=== PATIENT | female | born 1990 | race Caucasian/White ===

== ENCOUNTER 2018-04-21 12:23 | Emergency (ER) | payer BC, OTHER ==
[2018-04-21 12:43] VITALS: BP 109/63; PULSE 93; TEMP 100; BMI 26.5
[2018-04-21] MEDS ORDERED: DEXAMETHASONE LIQUID 0.5 MG/5 ML 240 ML BULK BOTTLE PO ONE (14:19)
[2018-04-21] MEDS ORDERED: KETOROLAC TROMETHAMINE 30 MG/1 ML VIAL IM ONE (14:19)
[2018-04-21] MEDS ORDERED: DEXAMETHASONE SOD PHOSPHATE 10 MG/1 ML VIAL ONE (14:27)
[2018-04-21] MEDS ORDERED: KETOROLAC TROMETHAMINE 30 MG/1 ML VIAL ONE (14:28)
--- NOTE | 2018-04-21 14:28 | PDOC ---
History of Present Illness - General Chief Complaint: Cold Symptoms Stated Complaint: COLD SYMPTOMS Time Seen by Provider: 04/21/18 13:59 History Source: Patient Exam Limitations: Clinical Condition - History of Present Illness Initial Comments: 04/21/18 14:22 Patient with no significant past medical history present with complaint of three -day history of sore throat, fever and swelling of bilateral neck glands. Patient was seen in urgent care today for symptoms and reported rapid strep was negative and patient discharged home on clindamycin and instructed to come to with radiologist Center for next CT or ER for next CT to rule out peritonsillar abscess. Patient denies swelling sensation in her throat or difficulty swallowing other than increased pain with swallowing. Patient also reported nasal congestion and body aches with headache for same. Timing/Duration: other (3 days) Past History - Past Medical History Allergies/Adverse Reactions: Allergies Allergy/AdvReac Type Severity Reaction Status Date / Time No Known Allergies Allergy Verified 03/15/15 12:34 Home Medications: Ambulatory Orders Prednisone [Deltasone] 20 mg PO BID 5 Days #10 tablet 04/21/18 Asthma: Yes COPD: No CHF: No GI Disorders: Yes (GB POLYPS) - Immunization History Immunization Up to Date: Yes - Suicide/Smoking/Psychosocial Hx Smoking History: Never smoked Have you smoked in the past 12 months: No Information on smoking cessation initiated: No Hx Alcohol Use: No Drug/Substance Use Hx: No Substance Use Type: None Review of Systems - Review of Systems Able to Perform ROS?: Yes Is the patient limited Maori proficient: No Constitutional: Yes: Fever. No: Malaise HEENTM: Yes: Symptoms Reported, See HPI, Nose Congestion, Throat Pain. No: Eye Pain, Blurred Vision, Tearing, Recent change in vision, Double Vision, Cataracts , Ear Pain, Ocular Prothesis, Ear Discharge, Nose Pain, Tinnitus, Nose Bleeding , Hearing Loss, Throat Swelling, Mouth Pain, Dental Problems, Difficulty Swallowing, Mouth Swelling, Other Respiratory: No: Symptoms reported, See HPI, Cough, Orthopnea, Shortness of Breath, SOB with Exertion, SOB at Rest, Stridor, Wheezing, Productive cough, Hemoptysis, Other Cardiac (ROS): No: Symptoms Reported, See HPI, Chest Pain, Edema, Irregular Heart Rate, Lightheadedness, Palpitations, Syncope, Chest Tightness, Other ABD/GI: No: Nausea, Vomiting Hematologic/Lymphatic: Yes: Lymph Node Abnormalities, Swollen Glands (b/l swollen lymph nose. left >right) *Physical Exam - Vital Signs Last Vital Signs Temp Pulse Resp BP Pulse Ox 100.0 F H 93 H 18 109/63 99 04/21/18 12:41 04/21/18 12:41 04/21/18 12:41 04/21/18 12:41 04/21/18 12:41 - Physical Exam Comments: 04/21/18 14:25 GENERAL: Well developed, well nourished. Awake and alert. No acute distress. HEENT: moderate erythema to pharynx and b/l tonsils with midly enlarged b/l tonsins. no uvula deviation. airway patent. no visible abscess to pharynx. Normocephalic, atraumatic. PERRLA, EOMI. No conjunctival pallor. Sclera are non- icteric. Moist mucous membranes. NECK: moderate enlarged anterior cervical lymph nose left greater than right. Full ROM. CARDIOVASCULAR: Regular rate and rhythm. No murmurs, rubs, or gallops. Distal pulses are 2+ and symmetric. PULMONARY: No evidence of respiratory distress. Lungs clear to auscultation bilaterally. No wheezing, rales or rhonchi. ABDOMINAL: Soft. Non-tender. Non-distended. No rebound or guarding. No organomegaly. Normoactive bowel sounds. SKIN: Warm and dry. no skin erythema NEUROLOGICAL: Alert, awake, appropriate. Gait is normal without ataxia. PSYCHIATRIC: Cooperative. Good eye contact. Appropriate mood General Appearance: Yes: Nourished, Appropriately Dressed. No: Apparent Distress Moderate Sedation - Procedure Monitoring Vital Signs: Procedure Monitoring Vital Signs Temperature 100.0 F H 04/21/18 12:41 Pulse Rate 93 H 04/21/18 12:41 Respiratory Rate 18 04/21/18 12:41 Blood Pressure 109/63 04/21/18 12:41 O2 Sat by Pulse Oximetry (%) 99 04/21/18 12:41 Medical Decision Making - Medical Decision Making 04/21/18 14:28 Patient with no significant past medical history present with complaint of three -day history of sore throat, fever, nasal congestion and bilateral lymph no swollen. Patient is sent in by urgent care to rule out peritonsillar abscess due to enlarged lymph nodes. Patient reported no feeling of swelling in the throat or foreign object in throat. Clinical exam shows no evidence of abscess in the throat with patent airway. Moderately enlarged left anterior cervical lymph node with mildly enlarged right anterior cervical lymph node on exam. Given patient sore throat. Symptoms likely strep pharyngitis with lymphadenopathy. No need for neck CT for peritonsillar abscess. Rapid strep and rapid flu ordered. Decadron 10 mg by mouth and Toradol 30 mg IM given for pain and swelling. Treat based on lab results 04/21/18 15:29 rapid strep and flu neg. Patient stable for discharge to take prescribed clindamycin Abx from urgent care . will add prednisone for lymphadenitis *DC/Admit/Observation/Transfer Diagnosis at time of Disposition: Lymphadenitis Pharyngitis Qualifiers: Pharyngitis/tonsillitis etiology: unspecified etiology Qualified Code(s): J02.9 - Acute pharyngitis, unspecified - Discharge Dispostion Disposition: HOME Condition at time of disposition: Stable Decision to Admit order: No - Prescriptions Prescriptions: Prednisone [Deltasone] 20 mg PO BID 5 Days #10 tablet - Referrals Referrals: Von Sorenson MD [Staff Physician] - - Patient Instructions Printed Discharge Instructions: DI for Pharyngitis/Tonsillopharyngitis -- Adult , Peritonsillar Abscess Additional Instructions: Take prescribed clindamycin from urgent care. Take tylenol as needed for fever. Increase fluid intake. Come back to ER if difficulty swallowing, chocking sensation, worsening fever - Post Discharge Activity Forms/Work/School Notes: Back to Work
== END 2018-04-21 15:35 | disposition home or self-care (01) ==
LOC: JERFT 12:23
PROC: 3E0233Z Introduction of Anti-inflammatory into Muscle, Percutaneous Approach (ICD-10-PCS; principal; 2018-04-21)
DX: I88.9 Nonspecific lymphadenitis, unspecified (principal); J02.9 Acute pharyngitis, unspecified; J45.909 Unspecified asthma, uncomplicated
CPT/HCPCS: 87070; 87804; 87880; 99281-25

== ENCOUNTER 2018-07-20 17:20 | Inpatient (IN) | payer OTHER ==
[~2018-07-20 17:20] MED LIST: BUPIVACAINE HCL/PF (5 MG/ML) 30 ML VIAL IJ ONE
[2018-07-20] MEDS ORDERED: SODIUM CHLORIDE 1,000 ML IV STA (17:55)
--- NOTE | 2018-07-20 18:05 | PDOC ---
Attending Attestation - Resident Resident Name: RonLuis EDong - ED Attending Attestation I have performed the following: I have examined & evaluated the patient, The case was reviewed & discussed with the resident, I agree w/resident's findings & plan, Exceptions are as noted - HPI HPI: 07/20/18 18:04 27-year-old female brought in by ambulance for a ruptured ectopic. Patient has been followed for an ectopic by a treating engineer in [place]. She's had methotrexate for this. She developed sudden pain and called an ambulance. En route, she was found to be hypotensive with a systolic pressure in the 80s - Physicial Exam PE: 07/20/18 22:31 wnwd 27 yo female p/w severe pelvic pain head ncat neck supple lungs cta b/l cvs [id number] abd suprapubic tenderness++ skin warm and dry neuro [id number],ambulatory psych appropriate - Medical Decision Making 07/20/18 22:47 pelvic US Ruptured Ectopic Dr Vaca( slasher tender helper) was notified and this pt went to the operating room
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
[2018-07-20] MEDS ORDERED: ACETAMINOPHEN 1000 MG/100 ML VIAL (NON FORMULARY) IVPB ONE ×2 (18:07→22:36)
[2018-07-20 18:12] VITALS: BMI 26.2
[2018-07-20] MEDS ORDERED: ACETAMINOPHEN INJECTION 100 ML IVPB ONE ×2 (18:23→22:32)
[2018-07-20 18:45] LABS: BASO % 0.7 % (0-2.0); EOS % 0.3 % (0-4.5); HEMATOCRIT 31.5 % (32.4-45.2); HEMOGLOBIN 11.3 GM/dL (10.7-15.3); LYMPH % 15.2 % (8-40); MCH 31.5 pg (25.7-33.7); MCHC 35.8 g/dl (32.0-36.0); MEAN CELL VOLUME 88.2 fl (80-96); MEAN PLT VOLUME 7.4 fl (7.5-11.1); MONO % 6.1 % (3.8-10.2); NEUT % 77.7 % (42.8-82.8); PLATELET COUNT 387 K/MM3 (134-434); RBC 3.57 M/mm3 (3.60-5.2); RDW 13.7 % (11.6-15.6); WHITE BLOOD COUNT 9.1 K/mm3 (4.0-10.0)
[2018-07-20 18:59] LABS: INR 1.19 (0.83-1.09); PROTHROMBIN TIME (PATIENT) 14.1 SEC (9.7-13.0)
[2018-07-20 19:02] LABS: ACTIVATED PTT 26.5 SECONDS (25.2-36.5)
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
[2018-07-20] MEDS ORDERED: PROPOFOL 20 ML ONE ×2 (20:11→20:55)
[2018-07-20] MEDS ORDERED: ROCURONIUM BROMIDE 50 MG/5 ML VIAL ONE (20:12)
[2018-07-20] MEDS ORDERED: MIDAZOLAM HCL 2 MG/2 ML SINGLE DOSE VIAL ONE (20:19)
[2018-07-20] MEDS ORDERED: BUPIVACAINE HCL/PF 0.5% (5MG/ML) 10 ML VIAL ONE (20:30)
[2018-07-20] MEDS ORDERED: ONDANSETRON 4 MG/2 ML VIAL ONE (21:54)
[2018-07-20] MEDS ORDERED: ONDANSETRON 4 MG/2 ML VIAL IVPUSH PRN (22:03)
[2018-07-20] MEDS ORDERED: oxyCODONE HCL 5 MG TABLET PO PRN (22:03)
--- NOTE | 2018-07-20 22:08 | OP ---
Operative Note - Note: Operative Date: 07/20/18 Pre-Operative Diagnosis: Ruptured R ectopic Operation: Diagnostic Laparoscopy, R salpingectomy, Evacuation of hemoperitoneum Findings: Large hemoperitoneum, Right fallopian tube with ectopic Post-Operative Diagnosis: Same as Pre-op Surgeon: Theresa Vaca Corporate Aircraft Mechanic: Diogenes Roper Estimated Blood Loss (mls): 50 Operative Report Dictated: Yes
[2018-07-20] MEDS ORDERED: oxyCODONE HCL 5 MG TABLET PO ONE (22:15)
[2018-07-20] MEDS ORDERED: ACETAMINOPHEN 325 MG TABLET (FP) PO ONE (22:15)
[2018-07-20] MEDS ORDERED: LACTATED RINGERS SOLUTION 1,000 ML IV SCH (22:15)
[2018-07-21] MEDS: IBUPROFEN 400 MG TABLET (FP) PO PRN ×2 (01:23→08:31)
[2018-07-21 09:14] LABS: ALBUMIN 3.8 g/dl (3.4-5.0); ALK PHOS 69 U/L (45-117); ANION GAP 8 MMOL/L (8-16); BILIRUBIN,TOTAL 0.5 mg/dL (0.2-1); BLOOD UREA NITROGEN 6 mg/dL (7-18); CALCIUM 8.6 mg/dL (8.5-10.1); CHLORIDE 104 mmol/L (98-107); CO2 25 mmol/L (21-32); CREATININE 0.7 mg/dL (0.55-1.3); GLUCOSE,RANDOM 123 mg/dL (74-106); POTASSIUM 3.6 mmol/L (3.5-5.1); SGOT/AST 15 U/L (15-37); SGPT/ALT 20 U/L (13-61); SODIUM 137 mmol/L (136-145); TOT PROT 7.6 g/dl (6.4-8.2)
[2018-07-21 09:19] VITALS: BP 114/55; PULSE 77; TEMP 98.7
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
--- NOTE | 2018-07-21 13:02 | OP ---
DATE OF OPERATION: 07/20/2018 PREOPERATIVE DIAGNOSIS: Ruptured right ectopic . POSTOPERATIVE DIAGNOSIS: Ruptured right ectopic . PROCEDURE: Diagnostic laparoscopy, right salpingectomy, evacuation of hemoperitoneum. ANESTHESIA: General. SURGEON: Theresa Houston MD ROUNDING MACHINE OPERATOR: KORIN Cooper ESTIMATED BLOOD LOSS: 50 mL, 1 L hemoperitoneum evacuated. IV FLUIDS: Per Anesthesia record. URINE OUTPUT: 100 mL of urine at the end of the procedure. FINDINGS: Large hemoperitoneum, right fallopian tube ectopic . Normal left fallopian tube and ovary. Normal right ovary. Omental adhesions in the patient 's right upper quadrant. COMPLICATIONS: None. CONDITION: Stable to recovery. DESCRIPTION OF PROCEDURE: After the appropriate consents were signed, the patient was taken to the operating room where general anesthesia was administered. She was placed in dorsal lithotomy position. A Frost catheter was inserted. The abdomen was prepped and draped in the normal sterile fashion. A time-out was performed confirming correct patient and procedure. Then 0.25% Marcaine was injected into the umbilicus. A 5-mm incision was made in the umbilicus, and a 5-mm laparoscope was used to enter the abdomen under direct visualization without difficulty. The abdomen then was insufflated with gas. The patient was placed in Trendelenburg position. Large hemoperitoneum was noted immediately upon entry. Using a similar technique, a 5-mm port was introduced into the patient's left lower quadrant under direct visualization without difficulty as was a right lower quadrant port as well. Bowel was moved out of the way to confirm the right ectopic , which was noted to be in the patient's right fallopian tube. The right ovary was noted to be normal. The hemoperitoneum obscuring visualization was evacuated with the suction to facilitate better visualization. The ectopic was grasped and then using the LigaSure device, the ectopic was removed along the mesosalpinx and transected at its insertion into the uterus without difficulty. The bite sites were noted to be hemostatic. The right lower quadrant port was then converted into a 12-mm port to accommodate an EndoCatch bag, which was introduced, and the ectopic was placed into the EndoCatch bag and then removed through the right lower quadrant port. The peritoneum had to be extended with a Brandi to accommodate removal of the ectopic . The trocar was then reintroduced under visualization, and evacuation of the hemoperitoneum was then undertaken. The patient was placed in Trendelenburg position and reverse Trendelenburg position numerous times to help facilitate the movement of fluid into the lower pelvis to accommodate evacuation. Roughly 1 L of fluid was evacuated from the pelvis. An attempt was made to try to remove some of the fluid in the right upper quadrant; however, visualization was poor secondary to right upper quadrant adhesions from the patient's prior cholecystectomy. The right lower quadrant port was not closed with a Wallace-Ama secondary to insufficient gas insufflation. It was closed with a UR6. The left lower quadrant umbilical ports were then removed. Abdomen was desufflated of gas. The skin incisions were closed with 4-0 Biosyn. Appropriate bandages were placed. All sponge, lap, and needle counts were correct. The patient did not receive antibiotics at the start of the procedure or during the procedure. She was taken from the operating room to the recovery room in stable condition. Her Frost catheter was removed at the end of the procedure. THERESA HOUSTON MD [id number] MTDD
--- NOTE | 2018-07-22 18:31 | PATH ---
Surgical Pathology Report Patient Name: CRISTINO SWANSON Med. Rec. #: [id number] /Age/Gender: 1990 (Age: 27) / F Account: [id number] Location: [facility] OBS/FILM PRODUCER Taken: 07/20/2018 Received: 07/21/2018 Reported: 07/22/2018 Physicians: Theresa Vaca PHYSICIAN EMERGENCY DEPT Specimen(s) Received RIGHT FALLOPIAN TUBE Clinical History Ectopic Final Diagnosis FALLOPIAN TUBE, RIGHT, LAPAROSCOPIC SALPINGECTOMY: CHORIONIC VILLI IN A BACKGROUND OF HEMORRHAGE PRESENT WITHIN THE FALLOPIAN TUBE, CONSISTENT WITH ECTOPIC . Electronically Signed Marimar Polo M.D. Gross Description Received in formalin labeled "right fallopian tube," is a 7 cm in length fimbriated portion of fallopian tube. The proximal aspect displays a large dilatation with a focal defect. Sectioning reveals red-brown tissue and blood clot within the lumen. No definitive villous tissue or somatic tissue is identified. Window Glass Installer sections are submitted in 4 cassettes with the fimbria in cassette 1. /07/21/2018 [facility]07/21/2018
== END 2018-07-21 10:40 | disposition home or self-care (01) | DRG 817 ==
LOC: SUPCPDRO 17:20 → JER 17:20 → J3W 18:52 → JER 23:53
PROVIDERS: ADMIT Obstetrics & Gynecology; ATTEND Obstetrics & Gynecology
PROC: 10T24ZZ Resection of Products of Conception, Ectopic, Percutaneous Endoscopic Approach (ICD-10-PCS; 2018-07-20)
PROC: 0UB54ZZ Excision of Right Fallopian Tube, Percutaneous Endoscopic Approach (ICD-10-PCS; principal; 2018-07-20 20:00)
DX: O00.101 Right tubal pregnancy without intrauterine pregnancy (principal); K66.1 Hemoperitoneum
CPT/HCPCS: 36415; 76817-TC; 80053; 84702; 85025; 85610; 85730; 86850; 86900; 86901; 87040; 88305-TC; 94760; 99282-25; J0131

== ENCOUNTER 2020-05-05 12:28 | Emergency (ER) | payer OTHER ==
[2020-05-05 12:43] VITALS: BMI 25.1
[2020-05-05] MEDS ORDERED: SODIUM CHLORIDE 1,000 ML IV STA (13:30)
[2020-05-05] MEDS ORDERED: ACETAMINOPHEN 1000 MG/100 ML VIAL (NON FORMULARY) IVPB ONE (13:30)
[2020-05-05] MEDS ORDERED: ACETAMINOPHEN INJECTION 100 ML IVPB ONE (13:55)
[2020-05-05 14:24] LABS: BASO % 0.6 % (0-2.0); EOS % 2.2 % (0-4.5); HEMATOCRIT 40.7 % (32.4-45.2); HEMOGLOBIN 13.9 GM/dL (10.7-15.3); LYMPH % 23.6 % (8-40); MCH 30.3 pg (25.7-33.7); MCHC 34.3 g/dl (32.0-36.0); MEAN CELL VOLUME 88.3 fl (80-96); MEAN PLT VOLUME 7.8 fl (7.5-11.1); MONO % 4.1 % (3.8-10.2); NEUT % 69.5 % (42.8-82.8); PLATELET COUNT 339 K/MM3 (134-434); RBC 4.61 M/mm3 (3.60-5.2); RDW 12.8 % (11.6-15.6); WHITE BLOOD COUNT 7.4 K/mm3 (4.0-10.0)
[2020-05-05 14:40] LABS: INR 1.09 (0.83-1.09); PROTHROMBIN TIME (PATIENT) 13.4 SEC (9.7-13.0)
[2020-05-05 14:43] LABS: CHLORIDE 105 mmol/L (98-107); POTASSIUM 4.1 mmol/L (3.5-5.1); SODIUM 140 mmol/L (136-145)
[2020-05-05 14:44] LABS: ALBUMIN 4.4 g/dl (3.4-5.0)
[2020-05-05 14:45] LABS: CALCIUM 9.3 mg/dL (8.5-10.1)
[2020-05-05 14:46] LABS: ANION GAP 10 MMOL/L (8-16); BLOOD UREA NITROGEN 8.8 mg/dL (7-18); CO2 26 mmol/L (21-32); GLUCOSE,RANDOM 81 mg/dL (74-106); LIPASE 93 U/L (73-393)
[2020-05-05 14:49] LABS: CREATININE 0.7 mg/dL (0.55-1.3); SGOT/AST 10 U/L (15-37); SGPT/ALT 12 U/L (13-61)
[2020-05-05 14:50] LABS: BILIRUBIN,TOTAL 0.8 mg/dL (0.2-1); TOT PROT 8.1 g/dl (6.4-8.2)
[2020-05-05 14:51] LABS: ALK PHOS 69 U/L (45-117)
[2020-05-05 15:27] LABS: EPI CELLS 26 /uL (0-25.1); HYALINE CASTS 4 /uL (0-3.1); PH,URINE 5.5 (5.0-8.0); URINE APPEARANCE CLOUDY; URINE BACTERIA 117 /uL (0-1359); URINE BILIRUBIN NEGATIVE (NEGATIVE); URINE COLOR DK YELLOW; URINE GLUCOSE (UA) NEGATIVE (NEGATIVE); URINE KETONE 3+ (NEGATIVE); URINE LEUK ESTERASE NEGATIVE (NEGATIVE); URINE NITRITE NEGATIVE (NEGATIVE); URINE PROTEIN TRACE (NEGATIVE); URINE RBC 3 /uL (0-23.9); URINE WBC 20 /uL (0-25.8)
[2020-05-05 17:05] VITALS: BP 97/59; PULSE 64; TEMP 98.1
== END 2020-05-05 17:51 | disposition home or self-care (01) ==
LOC: JER 12:28
PROC: 3E0333Z Introduction of Anti-inflammatory into Peripheral Vein, Percutaneous Approach (ICD-10-PCS; principal; 2020-05-05)
PROC: 3E0337Z Introduction of Electrolytic and Water Balance Substance into Peripheral Vein, Percutaneous Approach (ICD-10-PCS; 2020-05-05)
DX: K51.919 Ulcerative colitis, unspecified with unspecified complications (principal)
CPT/HCPCS: 36415; 74177-TC; 80053; 81003; 82550; 83690; 84484; 84703; 85025; 85610; 87086; 99285-25; J0131; Q9967

== ENCOUNTER 2021-09-25 14:00 | Emergency (ER) | payer OTHER ==
[2021-09-25 14:29] VITALS: BP 108/70; PULSE 62; TEMP 97.6; BMI 26.2
== END 2021-09-25 18:51 | disposition home or self-care (01) ==
LOC: JER 14:00
DX: M79.605 Pain in left leg (principal)
CPT/HCPCS: 0241U-QW; 93970-TC; 99284-25